=== PATIENT | female | born 1970 | race African-American/Black ===

== ENCOUNTER 2018-10-09 10:39 | Outpatient (CLI) | payer OTHER ==
--- NOTE | 2018-10-14 17:21 | MMO ---
BILATERAL SCREENING MAMMOGRAM: Date: 10/09/18 HISTORY: 48-year-old female. Routine screening mammography. COMPARISON: 12/01/12. TECHNIQUE: CC, MLO, and cleavage views of left and right breast are submitted for interpretation. This patient's mammogram was reviewed with the assistance of computer-aided detection. FINDINGS: Redemonstration of bilateral enlarged axillary and intramammary lymph nodes, unchanged. There is no s uspicious dominant mass, architectural distortion, or suspicious calcification in either breast. The breasts are composed of scattered fibroglandular tissue. IMPRESSION: BIRADS 2: Benign Finding(s) RECOMMENDATION: Annual mammogram. POS: [facility]
== END 2018-10-09 10:40 | disposition home or self-care (01) ==
LOC: SCSMAMMO 10:39
PROVIDERS: ATTEND Family Medicine
DX: Z12.31 Encounter for screening mammogram for malignant neoplasm of breast (principal)
CPT/HCPCS: 77067

== ENCOUNTER 2023-03-08 13:50 | Outpatient (CLI) | payer BC | END 2023-03-08 13:51 | disposition home or self-care (01) | LOC: SCSMRI 13:50 | PROVIDERS: ATTEND Family Medicine | DX: M47.26 Other spondylosis with radiculopathy, lumbar region (principal); M54.50 Low back pain, unspecified; M47.815 Spondylosis without myelopathy or radiculopathy, thoracolumbar region; M47.817 Spondylosis without myelopathy or radiculopathy, lumbosacral region | CPT/HCPCS: 72148 ==

== ENCOUNTER 2023-06-15 15:18 | Emergency (ER) | payer BC ==
[2023-06-15 15:50] LABS: #Eosinphils 0.1 thou/uL (0.0-0.7); #Monocytes 0.5 thou/uL (0.11-0.59); #Neutrophils 5.6 thou/uL (1.40-6.50); %Basophils 0.4 % (0.0-1.0); %Eosinophils 1.6 % (0.0-10.0); %Lymphocytes 21.6 % (21.0-51.0); %Neutrophils 69.8 % (42.0-75.0); Hematocrit 36.2 % (36.0-47.0); Mean Corpuscular HGB CONC 33.1 g/dL (32.0-36.0); Mean Corpuscular Hemoglobin 27.3 pg (27.0-31.0); Mean Corpuscular Volume 82.3 fl (78.0-98.0); Mean Platelet Volume 9.1 fL (7.4-10.4); Platelet Count 236 10x3/uL (130-400); RBC Distribution Width 13.3 % (11.5-14.5); White Blood Cell (WBC) Count 8.1 10x3/uL (4.8-10.8)
[2023-06-15 15:56] LABS: Bacteria/HPF None Seen HPF (None Seen); Bilirubin Negative (Negative); Blood, Urine Negative (Negative); CAUTI Indications for Culture Pelvic or flank pain; Clarity Clear (Clear); Glucose, Urine (Dipstick) Normal (Negative); Ketone, Urine Negative (Negative); Leukocyte Negative Leu/uL (Negative); Nitrite Negative (Negative); Protein, Urine (Dipstick) Negative (Neg-Trace); RBC/HPF 0-3 HPF (0-3); Squamous Epithelial 0-3 HPF (0-3); Urobilinogen Normal mg/dL (Less than 2); WBC/HPF 0-3 HPF (0-3); pH, Urine 6.5 (5.0-9.0)
[2023-06-15 15:59] LABS: Urine Culture Reflex No No
[2023-06-15] MEDS ORDERED: Labetalol HCl 100 MG/20 ML VIAL ONE (16:30)
[2023-06-15 16:37] LABS: ALT (SGPT) 11 U/L (8-55); AST (SGOT) 12 U/L (5-34); Albumin 3.9 g/dL (3.5-5.0); Alkaline Phosphatase 77 U/L (40-110); Anion Gap 15 mmol/L (10-20); BUN (Urea Nitrogen) 7 mg/dL (9.8-20.1); Bilirubin, Total 0.5 mg/dL (0.2-1.2); Calc. Creatinine Clearance 0 mL/min (70-130); Calcium 9.1 mg/dL (7.8-10.44); Carbon Dioxide 21 mmol/L (22-29); Chloride 106 mmol/L (98-107); Estimated GFR 75; Globulin 3.6 g/dL (2.4-3.5); Glucose 148 mg/dL (70-105); Potassium 3.2 mmol/L (3.5-5.1); Protein, Total 7.5 g/dL (6.0-8.3); Sodium 139 mmol/L (136-145)
[2023-06-15 16:39] LABS: Troponin I Less than 0.010 ng/mL (< 0.028)
== END 2023-06-15 17:30 | disposition home or self-care (01) ==
LOC: ERS 15:18
DX: R00.2 Palpitations (principal); I10 Essential (primary) hypertension
CPT/HCPCS: 36415; 71045; 80053; 81001; 84484; 85025; 93005